=== PATIENT | male | born 1960 | race Caucasian/White ===

== ENCOUNTER 2021-10-03 13:11 | Emergency (ER) | payer OTHER, SELFPAY ==
[2021-10-03 13:13] VITALS: BP 93/79; PULSE 86; RESP 16; TEMP 36.7; O2SAT 98; BMI 25.0
--- NOTE | 2021-10-03 13:31 | EKG12_ITS ---
Test Reason : CHEST PRESSURE Blood Pressure : / mmHG Vent. Rate : 073 BPM Atrial Rate : 073 BPM P-R Int : 150 ms QRS Dur : 082 ms QT Int : 354 ms P-R-T Axes : 045 050 073 degrees QTc Int : 389 ms Normal sinus rhythm Normal ECG Confirmed by UMER STARKEY MD ([id number]), script editor TIMMY SCHULTZ ([id number]) on 10/06/2021 12:58:29 PM Referred By: LOIDA Confirmed By:UMER STARKEY MD
--- NOTE | 2021-10-03 13:32 | EX.ED.UPPERE ---
HPI History of Present Illness HPI Narrative: Left shoulder and chest pain Chief Complaint: Upper Extremity Injury Informant: patient Occured/Mechanism Mechanism/Context: No injury Onset/Context/Timing Onset: Days Context: Gradual Onset Timing: Intermittent Quality of Pain: Dull and Aching Current Severity: Mild Maximum Severity: Mild Associated Symptoms Associated Symptoms: Negative for Parasthesia, Weakness or Loss of Funtion Narrative Narrative: 61-year-old male recently been tired. He has been having left shoulder pain. He is right-hand dominant. He said it is really worse yesterday. He has had body aches. He denies any nausea or vomiting. He denies any diarrhea or fever. He has had some mild shortness of breath. He said his left arm hurts more with movement. He denies any prior surgery or any recent injury. Patient is treated for blood pressure on both metoprolol and lisinopril as needed. Prior similar symptoms: Yes Recent Illness/Hospitalization: No PFSH PFSH Medical History HTN (hypertension) Home Medications lisinopril 20 mg tablet 20 mg PO DAILY 10/03/21 [History Last Taken Unknown] metoprolol tartrate 50 mg tablet 50 mg PO DAILY 10/03/21 [History Last Taken Unknown] prednisone 20 mg tablet 40 mg PO DAILY 7 days #14 tabs 10/03/21 [Rx Last Taken Unknown] Allergy/AdvReac Type Severity Reaction Status Date / Time No Known Allergies Allergy Verified 10/03/21 14:29 Surgical History H/O spinal fusion Hx of cholecystectomy Social History Smoking Status: Never smoker ROS ROS ED ROS Narrative Tired. Left shoulder and epigastric pain. Review of Systems ROS Unobtainable: Denies due to encephalopathy Constitutional Constitutional ED: Denies chills or fever(s) Eyes Eyes: Denies blurry vision ENT ENT ED: Denies ear pain Cardiovascular Cardiovascular: Reports chest pain Respiratory/Chest Respiratory/Chest: Denies cough or dyspnea Gastrointestinal Gastrointestinal: Reports abdominal pain; Denies constipation or diarrhea Genitourinary Genitourinary ED: Denies dysuria or hematuria Musculoskeletal Musculoskeletal: Denies back pain Integumentary Denies abscess Neurologic Neurologic: Denies headache(s) Psychiatric Psychiatric: Denies anxiety Endocrine Endocrinology: Denies cold intolerance Hematologic/Lymphatic Hematologic/Lymphatic: Denies easy bleeding Allergic/Immunologic Allergic/Immunologic ED: Denies mouth swelling EXAM Physical Exam Narrative Exam Narrative: 61-year-old male no acute distress vital signs stable afebrile. Initial pressure was 93/79 the nurses retook it is 151/89 they think the cuff malfunction initially. H EENT exam unremarkable. Neck nontender. Lungs are clear. Heart regular rhythm no murmur. Abdomen soft nontender. Moving all 4 extremities. Calves are nontender without edema. Neurologically is awake and alert with no focal motor deficits. His left arm he does have discomfort with range of motion. Is not red or swollen. There is no bony deformity. No warmth. No signs of septic joint. He has normal radial pulses and normal fumigator and sterilizer strength. Const Vital Signs: 10/03/21 13:13 10/03/21 13:25 Temperature 98.0 F Temperature Source Temporal Pulse Rate 86 Respiratory Rate 16 Respiratory Effort Short of Breath Blood Pressure 93/79 Blood Pressure Mean 83 Pulse Ox 98 Oxygen Delivery Method Room Air Positive well nourished and well developed; Negative for obese, cachectic, contractures or unkempt General Appearance ED: well developed; Negative for unkempt, cachectic or contractures Nutritional Appearance: Negative for cachectic or obese HEENT Reports moist mucous membranes normocephalic and atraumatic; Negative for trauma or tenderness Eyes PERRL and EOMs intact bilaterally General Eye ED: Negative for other Neck full ROM and supple General: Negative for tenderness Lymph Lymphatic: Negative for other Chest Wall inspection of chest normal and palpation of chest normal Chest: Negative for other Resp normal respiratory effort and clear to auscultation bilaterally Effort and Inspection: Negative for pain with movement Auscultation: Negative for rales, rhonchi or wheezes Cardio regular rate, regular rhythm, S1 normal heart sound, S2 normal heart sound and no murmurs Rate: Negative for bradycardia Rhythm: Negative for abnormal rhythm GI non-tender, non-distended and no masses Inspection: Negative for abdominal distention Auscultation: normoactive bowel sounds Palpation: soft; Negative for tender or guarding Bladder / Kidney Exam: No other Back/Spine no CVA tenderness General Back: Negative for CVA tenderness Cervical Spine: Negative for cervical spine tenderness Thoracic Spine / Upper Back: Negative for thoracic spinal tenderness Lumbar Spine / Lower Back: Negative for lumbar spinal tenderness Extremity Negative for normal to inspection or full ROM Extremity Narrative: Left shoulder mild tenderness. No deformity. Range of motion is full but it takes him time to do range of motion due to discomfort. He can do internal or external rotation. He can do AB and adduction. General Extremety ED: Negative for edema General Extremity: Negative for edema Neuro oriented x3, CN's II-XII intact bilaterally, moves all extremities, no focal motor deficits and no sensory deficits noted Sensorium / Orientation: alert, oriented to person, oriented to place and oriented to time; Negative for orientation impaired, lethargic, stuporous or other Sensory Exam: No sensory level loss detected Psych mental status grossly normal Appearance: Negative for unkempt Attitude: No agitated Mood & Affect: Negative for depressed or anxious Skin General Skin Exam: Negative for petechiae Lesions: no lesions Rashes: no rashes MDM MDM MDM Narrative Medical decision making narrative: 61-year-old male complaint left shoulder pain and atypical chest and epigastric pain. Undergo cardiac work-up. There may be also component of left shoulder arthritis. Repeat exam patient is doing well. He and I discussed different treatment options. He and his are concerned that he has inflammation in his shoulder and other joints. We discussed joint injection versus placing him on prednisone. He preferred the prednisone. He will be given a prescription of 40 mg a day for the next 7 days. Follow-up with orthopedics. He has seen him before in the past for his shoulder and was told at one time he might eventually need a shoulder replacement. His cardiac work-up was completely negative. Lab Data Attestation: I reviewed the patient's lab results. Lab results narrative: CBC unremarkable. Chemistries unremarkable an elevated creatinine of 1.68. Troponin less than 3 normal. Lipase normal. Radiography Diagnostic Testing: Chest x-ray, portable, single view interpreted myself shows no acute abnormality. Normal cardiac silhouette mediastinum. No acute abnormality. Discharge Plan Triage Chief Complaint: Upper Extremity Injury Other Complaint: Chest Pain ED Provider: Yaya Acosta Dx/Rx/DC Orders Clinical Impression: Acute pain of left shoulder, Arthritis, Atypical chest pain Instructions: Osteoarthritis Prescriptions: New prednisone 20 mg tablet 40 mg PO DAILY 7 Days Qty: 14 0RF No Action lisinopril 20 mg Tablet 20 mg PO DAILY metoprolol tartrate 50 mg Tablet 50 mg PO DAILY Primary Care Provider: Vicente Venegas Referrals: Vicente Venegas DO [Primary Care Provider] - 1 Week if not improving Activity Restrictions/Additional Instructions: Ice to your left shoulder. Prednisone 40 mg a day for the next week to decrease inflammation. Follow-up with your doctor if not improving. Also to have your kidney function rechecked in the next month or so. Your creatinine today was 1.68. Disposition Disposition: Home, Self Care
[2021-10-03 13:34] VITALS: BP 151/89; PULSE 80; RESP 18; O2SAT 98
--- NOTE | 2021-10-03 13:55 | RAD_ITS ---
STUDY: X-RAY CHEST REASON FOR EXAM: Male, 61 years old. chest pain TECHNIQUE: AP COMPARISON: None. FINDINGS: The lungs are clear and expanded. There is no demonstrated pleural abnormality. Normal size heart. Normal mediastinum and chrissy. Normal visualized pulmonary arteries. There is atherosclerotic calcification of the aortic arch with tortuosity. Normal visualized thoracic spine. Fusion hardware in the lower cervical spine. EKG leads project over the chest. There is no demonstrated abnormality of the visualized soft tissue structures of the upper abdomen. RAD/Chest 1 View (Portable) IMPRESSION: Nonacute portable x-ray examination of the chest. Electronically Signed: Parmjit Mcfarland MD ([place]) at 14:19 EDT ,
[2021-10-03 13:59] LABS: Absolute Neutrophil Count 7.9 X10^3/uL (2.0-7.7); Basophil# 0.03 X10^3/uL; Basophil% 0.3 % (0-1); Eosinophil# 0.04 X10^3/uL; Eosinophils% 0.4 % (0-5); Hematocrit 40.8 % (40-54); Hemoglobin 13.7 g/dL (13.0-16.5); Lymphocyte % 15.2 % (19-41); Mean Corp Hgb Conc 33.6 g/dL (32-36); Mean Corpuscular Hgb 30.1 pg (27.0-32.0); Mean Corpuscular Volume 89.7 fL (80-94); Mean Platelet Vol. 9.7 fl (6.2-12.0); Monocyte# 0.95 X10^3/uL; NRBC Flagged by Analyzer 0 % (0-5); Neutrophil # 7.86 X10^3/uL (2.7-7.7); Neutrophil % 74.8 % (47-70); Platelet Count 257 K/mm3 (150-450); RBC Distribution Width CV 13.2 % (11.6-14.6); RBC Distribution Width SD 43.5 fl (35.1-43.9); Red Blood Count 4.55 M/mm3 (4.6-6.2); White Blood Count 10.5 K/mm3 (4.4-11.0)
[2021-10-03 14:07] LABS: Anion Gap 5 (5-15); BUN 24 mg/dL (7-18); BUN/Creat Ratio 14.3 RATIO (10-20); Calcium,Total 9.6 mg/dL (8.5-10.1); Chloride 105 mmol/L (98-107); Creatinine, Serum 1.68 mg/dL (0.70-1.30); EST Glomerular Filtration Rate 44 mL/min (>60); Est Glom Filt Rate - Afr Amer 54 mL/min (>60); Estimated Creatinine Clearance 43.17 ml/min; Glucose 103 mg/dL (74-106); Lipase 149 U/L (73-393); Potassium 4.2 mmol/L (3.5-5.1); Sodium Level 139 mmol/L (136-145); Troponin-I HS (w/2H Reflex) < 3 pg/mL (3.0-78.0)
--- NOTE | 2021-10-03 14:23 | NURSING ---
NO OLD EKGS
[2021-10-03 14:28] VITALS: BP 147/89; PULSE 73; RESP 17; O2SAT 97
[2021-10-03] MEDS: HYDROcodone Bitartrate/Apap 5/325 Tablet PO (14:34)
[2021-10-03 15:11] VITALS: BP 148/83; PULSE 72; RESP 13; O2SAT 96
[2021-10-03 15:46] LABS: Reflex Troponin-HS? (from REC) Y
[2021-10-03 16:23] VITALS: BP 145/85; PULSE 72; RESP 18; O2SAT 97
== END 2021-10-03 16:24 | disposition home or self-care (01) ==
PROVIDERS: Emergency Provider Emergency Medicine; PCP Family Medicine; Visit Provider Emergency Medicine
DX: M25.512 Pain in left shoulder (principal); M19.90 Unspecified osteoarthritis, unspecified site; R07.89 Other chest pain; I10 Essential (primary) hypertension; Z79.899 Other long term (current) drug therapy
CPT/HCPCS: 71045; 80048; 83690; 84484; 85025; 93005; 99285; A4216

== ENCOUNTER → 2022-01-21 | Outpatient (CLI) | payer OTHER, SELFPAY ==
[2022-01-21 13:12] LABS: Protein, Urine (Random) 27.4 mg/dL (<11.9); Protein:Creat Ratio 1473 mg/g CRE (0-200)
== END | disposition home or self-care (01) ==
LOC: LABSPEC 11:15
PROVIDERS: PCP Family Medicine; Visit Provider Internal Medicine Nephrology
DX: N18.32 Chronic kidney disease, stage 3b (principal)
CPT/HCPCS: 82570; 84156

== ENCOUNTER → 2022-02-02 | Outpatient (CLI) | payer SELFPAY, OTHER ==
--- NOTE | 2022-02-02 12:20 | US_ITS ---
STUDY: RENAL ULTRASOUND - COMPLETE REASON FOR EXAM: Male, 61 years old. CKD TECHNIQUE: Ultrasound evaluation of the kidneys was performed with real-time and static buchanan-scale imaging. COMPARISON: None. FINDINGS: RIGHT KIDNEY: Normal location of the right kidney, which is normal in size. The right kidney measures 9.1 cm x 4.1 cm x 5.4 cm. There is a normal cortex of the right kidney. The renal cortex measures 1.7 cm. There is no right renal mass or cyst. There are no right renal calculi. There is no right hydronephrosis. DISTAL RIGHT URETER: There is non-visualization of the distal right ureter. There is no demonstrated right ureterovesical junction calculus. There is no demonstrated right ureteral jet. LEFT KIDNEY: Normal location of the left kidney, which is normal in size. The left kidney measures 9 cm x 4.1 cm x 5.3 cm. There is a normal cortex of the left kidney. The renal cortex measures 1.7 cm. There is no left renal mass or cyst. There are no left renal calculi. There is no left hydronephrosis. DISTAL LEFT URETER: There is non-visualization of the distal left ureter. There is no demonstrated left ureterovesical junction calculus. There is no demonstrated left ureteral jet. BLADDER: The distended urinary bladder has a volume of 430 ml. There is a normal wall thickness of the distended urinary bladder. There is no demonstrated mass within the urinary bladder. There are no demonstrated bladder calculi. US/Kidney and Bladder IMPRESSION: Normal ultrasound of the kidneys and urinary bladder. Electronically Signed: Lexa Martinez MD at 15:43 EST ,
== END | disposition home or self-care (01) ==
PROVIDERS: PCP Family Medicine; Visit Provider Internal Medicine Nephrology
DX: N18.32 Chronic kidney disease, stage 3b (principal)
CPT/HCPCS: 76770

== ENCOUNTER → 2022-02-02 | Outpatient (CLI) | payer OTHER, SELFPAY ==
[2022-02-02 15:57] LABS: Anion Gap 8 (5-15); BUN 20 mg/dL (7-18); Calcium,Total 9.2 mg/dL (8.5-10.1); Chloride 102 mmol/L (98-107); Creatinine, Serum 1.54 mg/dL (0.70-1.30); EST Glomerular Filtration Rate 49 mL/min (>60); Est Glom Filt Rate - Afr Amer 59 mL/min (>60); Glucose 92 mg/dL (74-106); Potassium 4.1 mmol/L (3.5-5.1); Sodium Level 137 mmol/L (136-145)
== END | disposition home or self-care (01) ==
PROVIDERS: PCP Family Medicine; Referring Provider Internal Medicine Nephrology; Visit Provider Internal Medicine Nephrology
DX: R80.9 Proteinuria, unspecified (principal)
CPT/HCPCS: 36415; 80048

== ENCOUNTER → 2022-03-18 | Outpatient (CLI) | payer OTHER, SELFPAY ==
[2022-03-18 13:12] LABS: Protein, Urine (Random) 67.1 mg/dL (<11.9); Protein:Creat Ratio 497 mg/g CRE (0-200)
[2022-03-18 13:45] LABS: Albumin, Serum 3.5 g/dL (3.2-5.0); BUN 37 mg/dL (7-18); BUN/Creat Ratio 20.9 RATIO (10-20); Chloride 110 mmol/L (98-107); Creatinine, Serum 1.77 mg/dL (0.70-1.30); EST Glomerular Filtration Rate 42 mL/min (>60); Est Glom Filt Rate - Afr Amer 51 mL/min (>60); Glucose 99 mg/dL (74-106); Phosphorus 3.7 mg/dL (2.5-4.9); Potassium 4.2 mmol/L (3.5-5.1); Sodium Level 140 mmol/L (136-145); Uric Acid 7.9 mg/dL (3.5-7.2)
== END | disposition home or self-care (01) ==
LOC: LAB 12:45
PROVIDERS: PCP Family Medicine; Referring Provider Internal Medicine Nephrology; Visit Provider Internal Medicine Nephrology
DX: N18.32 Chronic kidney disease, stage 3b (principal); R80.9 Proteinuria, unspecified; M10.9 Gout, unspecified
CPT/HCPCS: 36415; 80069; 82570; 84156; 84550

== ENCOUNTER → 2022-06-14 | Outpatient (CLI) | payer OTHER, SELFPAY ==
[2022-06-14 09:42] LABS: Protein, Urine (Random) 27.3 mg/dL (<11.9); Protein:Creat Ratio 756 mg/g CRE (0-200)
== END | disposition home or self-care (01) ==
LOC: LAB 09:02
PROVIDERS: PCP Family Medicine; Referring Provider Internal Medicine Nephrology; Visit Provider Internal Medicine Nephrology
DX: R80.9 Proteinuria, unspecified (principal)
CPT/HCPCS: 82570; 84156

== ENCOUNTER → 2022-09-14 | Outpatient (CLI) | payer OTHER, SELFPAY ==
[2022-09-14 13:47] LABS: Protein:Creat Ratio 527 mg/g CRE (0-200)
[2022-09-14 13:50] LABS: Albumin, Serum 3.5 g/dL (3.2-5.0); BUN 31 mg/dL (7-18); BUN/Creat Ratio 16.5 RATIO (10-20); Calcium,Total 9.3 mg/dL (8.5-10.1); Chloride 108 mmol/L (98-107); Creatinine, Serum 1.88 mg/dL (0.70-1.30); EST Glomerular Filtration Rate 39 mL/min (>60); Est Glom Filt Rate - Afr Amer 47 mL/min (>60); Glucose 129 mg/dL (74-106); Phosphorus 3.5 mg/dL (2.5-4.9); Potassium 4.1 mmol/L (3.5-5.1); Sodium Level 139 mmol/L (136-145)
== END | disposition home or self-care (01) ==
PROVIDERS: PCP Family Medicine; Referring Provider Internal Medicine Nephrology; Visit Provider Internal Medicine Nephrology
DX: E79.0 Hyperuricemia without signs of inflammatory arthritis and tophaceous disease (principal); N18.32 Chronic kidney disease, stage 3b; R80.9 Proteinuria, unspecified
CPT/HCPCS: 36415; 80069; 82570; 84156; 84550

== ENCOUNTER → 2022-12-21 | Outpatient (CLI) | payer OTHER, SELFPAY ==
[2022-12-21 11:42] LABS: Albumin, Serum 3.5 g/dL (3.2-5.0); BUN 28 mg/dL (7-18); BUN/Creat Ratio 14.8 RATIO (10-20); Calcium,Total 9.4 mg/dL (8.5-10.1); Chloride 106 mmol/L (98-107); Creatinine, Serum 1.89 mg/dL (0.70-1.30); EST Glomerular Filtration Rate 39 mL/min (>60); Est Glom Filt Rate - Afr Amer 47 mL/min (>60); Glucose 78 mg/dL (74-106); Phosphorus 3.1 mg/dL (2.5-4.9); Potassium 4.5 mmol/L (3.5-5.1); Sodium Level 138 mmol/L (136-145)
== END | disposition home or self-care (01) ==
LOC: LAB 09:32
PROVIDERS: Referring Provider Internal Medicine Nephrology; Visit Provider Internal Medicine Nephrology
DX: N18.32 Chronic kidney disease, stage 3b (principal); R80.9 Proteinuria, unspecified
CPT/HCPCS: 36415; 80069

== ENCOUNTER → 2023-02-15 | Outpatient (CLI) | payer OTHER, SELFPAY ==
[2023-02-15 15:16] LABS: Albumin, Serum 3.5 g/dL (3.2-5.0); BUN 23 mg/dL (7-18); BUN/Creat Ratio 12.8 RATIO (10-20); Calcium,Total 8.8 mg/dL (8.5-10.1); Chloride 107 mmol/L (98-107); EST Glomerular Filtration Rate 41 mL/min (>60); Est Glom Filt Rate - Afr Amer 49 mL/min (>60); Glucose 111 mg/dL (74-106); Phosphorus 3.5 mg/dL (2.5-4.9); Potassium 4.3 mmol/L (3.5-5.1); Sodium Level 140 mmol/L (136-145)
[2023-02-15 15:27] LABS: Protein, Urine (Random) 32.6 mg/dL (<11.9); Protein:Creat Ratio 845 mg/g CRE (0-200)
== END | disposition home or self-care (01) ==
LOC: LAB 13:56
PROVIDERS: PCP Family Medicine; Referring Provider Internal Medicine Nephrology; Visit Provider Internal Medicine Nephrology
DX: N18.32 Chronic kidney disease, stage 3b (principal); R80.9 Proteinuria, unspecified
CPT/HCPCS: 36415; 80069; 82570; 84156

== ENCOUNTER → 2023-04-15 | Outpatient (CLI) | payer OTHER, SELFPAY ==
--- OUTSIDE RECORDS SUMMARY | 2023-04-15 11:35 | XMS RPT_ITS | CCD ---
Author Name Unknown Address [address] [place] [address] Organization [facility] Care Team Providers [employer] Name Role Phone YIN MAYA Admitting Unavailable YIN MAYA Attending Unavailable YIN MAYA Primary Care Unavailable Problems Problem Classification Problem Date Documented Da te Episodic/Chronic Residual codes; unclassified (2 sources) Chills (without fever); Translations: [Chills (without fever)] Onset: 08-01-2019 Episodic Unclassified (1 source) Invalid ICD10 Description; Translations: [Invalid ICD10 Description] Onset: 08-01-2019 Results Test Name Value Interpretation Reference Range Facil ity Encounters Encounter Date Encounter Type Care Provider Facility Start: 08-01-2019 End: 08-01-2019 Patient encounter procedure YIN MAYA [facility] Payers Date Payer Category Payer Unknown [id number] Unknown [id number] Summary Purpose Family History No Family History Records FoundNo Family History Records Found Advance Directives No Advanced Directives Records FoundNo Advanced Directives Records Found Additional Source Comments (unrecognized sect ion and content) No Status Records FoundNo Status Records Found INFORMATION SOURCE (unrecogn ized section and content) DATE CREATED AUTHOR AUTHOR'S ORGANIZ ATION 08/13/2019 [facility] FOR RECORDS PERTAINING TO PATIENTS WHO ARE OR HAVE BEEN ENROLLED IN A CHEMICAL DEPENDENCY/SUBSTANCEABUSE PROGRAM, SOME INFORMATION MAY BE OMITTED. This clinical summary was aggregated from multiple sources. Caution should be exercised in using it in the provision of clinical care. This summary normalizes information from multiple sources, and as a consequence, information in this document may materially change the coding, format and clinical context of patient data. In addition, data may be omitted in some cases. CLINICAL DECISIONS SHOULD BE BASED ON THE PRIMARY CLINICAL RECORDS. [employer] [facility]. provides no warranty or guarantee of the accuracy or completeness of information in this document.
[2023-04-15 13:11] LABS: Albumin, Serum 3.4 g/dL (3.2-5.0); BUN 24 mg/dL (7-18); BUN/Creat Ratio 15.7 RATIO (10-20); Calcium,Total 9.4 mg/dL (8.5-10.1); Chloride 105 mmol/L (98-107); Creatinine, Serum 1.53 mg/dL (0.70-1.30); EST Glomerular Filtration Rate 49 mL/min (>60); Est Glom Filt Rate - Afr Amer 60 mL/min (>60); Glucose 96 mg/dL (74-106); Phosphorus 3.6 mg/dL (2.5-4.9); Potassium 4.2 mmol/L (3.5-5.1); Sodium Level 139 mmol/L (136-145)
[2023-04-15 13:20] LABS: Protein, Urine (Random) 12.7 mg/dL (<11.9); Protein:Creat Ratio 588 mg/g CRE (0-200)
[2023-04-18 11:08] LABS: ANTINUCLEAR ANTIBODIES DIRECT Negative (Negative)
[2023-04-18 14:08] LABS: PROEL- A/G Ratio 1.6 (0.7-1.7); PROEL- Albumin 3.9 g/dL (2.9-4.4); PROEL- Alpha-1 Globulin 0.1 g/dL (0.0-0.4); PROEL- Alpha-2 Globulin 0.5 g/dL (0.4-1.0); PROEL- Beta Globulin 1.3 g/dL (0.7-1.3); PROEL- Gamma Globulin 0.6 g/dL (0.4-1.8); PROEL- Globulin, Total 2.5 g/dL (2.2-3.9); PROEL- TOTAL PROTEIN 6.4 g/dL (6.0-8.5); PROEL-M-Spike Comment: g/dL (Not Observed)
== END | disposition home or self-care (01) ==
LOC: LAB 11:15
PROVIDERS: PCP Family Medicine; Referring Provider Internal Medicine Nephrology; Visit Provider Internal Medicine Nephrology
DX: N18.32 Chronic kidney disease, stage 3b (principal)
CPT/HCPCS: 36415; 80069; 82570; 84156; 84165; 84166; 86038

== ENCOUNTER → 2023-05-30 | Outpatient (CLI) | payer OTHER, SELFPAY ==
--- NOTE | 2023-05-30 08:45 | RAD_ITS ---
STUDY: X-RAY BONE SURVEY COMPLETE REASON FOR EXAM: Male, 62 years old. ABNORMAL SERUM PROTEIN ELECTROPHORESIS TECHNIQUE: One view of the pelvis was obtained. 2 views of the cervical spine were obtained. 2 views of the thoracic spine were obtained. 2 views of the lumbar spine were obtained. 2 views of the femur. 2 views of the humerus. : 2 views of the skull were obtained. COMPARISON: None. FINDINGS: CHEST: The lungs are clear and expanded. There is no demonstrated pleural abnormality. Normal size heart. Normal mediastinum and chrissy. Normal visualized pulmonary arteries. Normal visualized aortic arch and descending thoracic aorta. Normal visualized thoracic spine. Normal visualized ribs, clavicles, and shoulders. There is no demonstrated abnormality of the visualized soft tissue structures of the upper abdomen. PELVIS: There is a non-specific bowel gas pattern. There are multiple calcified phleboliths. Normal bilateral iliac wings, sacroiliac joints and visualized sacrum. Normal visualized bilateral superior and inferior pubic rami. Normal pubic symphysis. Normal ischial tuberosities. Normal visualized right femoral head. Normal right acetabulum. Normal right hip joint. Normal visualized left femoral head. Normal left acetabulum. Normal left hip joint. CERVICAL SPINE: Normal anterior atlantoaxial articulation. Normal odontoid process. Normal cervical lordosis. Normal vertebral bodies and endplates. The patient is status post anterior fusion with screw and plate fixation device and prosthetic disc at the C6-C7 level. Disc space narrowing and spondylosis at the C5-C6 level. Normal visualized intervertebral neuroforamina. The soft tissue structures are unremarkable. THORACIC SPINE: Normal kyphosis of the thoracic spine. There is no substantial scoliosis. There is multilevel endplate spondylosis of the thoracic vertebrae. There is multilevel disc space narrowing of the thoracic spine. The soft tissue structures are unremarkable. LUMBAR SPINE: Normal lumbar lordosis. There is no substantial scoliosis. There is a normal alignment of the vertebrae. There is multilevel endplate spondylosis of the lumbar vertebrae. There is multi-level degenerative disc disease with multi-level disc space narrowing. The soft tissue structures are unremarkable. RIGHT FEMUR: Normal visualized femur. Calcific bursitis overlying the greater trochanter. LEFT FEMUR: Normal visualized femur. Normal visualized soft tissue structure. RIGHT HUMERUS :Normal visualized humerus. There is no demonstrated fracture or osseous destructive process. There is no demonstrated soft tissue abnormality. LEFT HUMERUS:Normal visualized humerus. There is no demonstrated fracture or osseous destructive process. There is no demonstrated soft tissue abnormality. SKULL: There is no demonstrated soft tissue swelling. Normal osseous calvarium. Normal visualized facial bones. Normal visualized paranasal sinuses. RAD/Bone Survey Comp(Axial&Append) IMPRESSION: Degenerative changes of the cervical, thoracic and lumbar spines. No bony destruction is seen. Electronically Signed: Lexa Martinez MD at 13:09 EDT ,
== END | disposition home or self-care (01) ==
LOC: RAD 08:41
PROVIDERS: PCP Family Medicine; Referring Provider Internal Medicine Medical Oncology; Visit Provider Internal Medicine Medical Oncology
DX: R77.8 Other specified abnormalities of plasma proteins (principal)
CPT/HCPCS: 77075

== ENCOUNTER → 2023-10-11 | Outpatient (CLI) | payer SELFPAY ==
[2023-10-11 14:50] LABS: Albumin, Serum 3.3 g/dL (3.2-5.0); BUN 25 mg/dL (7-18); BUN/Creat Ratio 14.5 RATIO (10-20); Chloride 109 mmol/L (98-107); Creatinine, Serum 1.72 mg/dL (0.70-1.30); EST Glomerular Filtration Rate 43 mL/min (>60); Est Glom Filt Rate - Afr Amer 52 mL/min (>60); Glucose 149 mg/dL (74-106); Phosphorus 2.2 mg/dL (2.5-4.9); Potassium 3.8 mmol/L (3.5-5.1); Sodium Level 140 mmol/L (136-145)
[2023-10-11 14:53] LABS: Protein, Urine (Random) 10.9 mg/dL (<11.9); Protein:Creat Ratio 332 mg/g CRE (0-200)
[2023-10-18 11:59] LABS: Free Kappa Light Chains 22.4 mg/L (3.3-19.4); Free Lambda Light Chains 91.5 mg/L (5.7-26.3); PROELU- Albumin, Urine 83.3 % (.); PROELU- Alpha-1-Globulin,Ur 0.6 % (.); PROELU- Alpha-2-Globulin,Ur 2.5 % (.); PROELU- Beta Globulin, Ur 6.6 % (.)
== END | disposition home or self-care (01) ==
LOC: LAB 13:44
PROVIDERS: PCP Family Medicine; Referring Provider Internal Medicine Nephrology; Visit Provider Internal Medicine Nephrology
DX: N18.32 Chronic kidney disease, stage 3b (principal); R80.9 Proteinuria, unspecified; D47.2 Monoclonal gammopathy
CPT/HCPCS: 36415; 80069; 82570; 83883; 84156; 84166

== ENCOUNTER → 2024-04-23 | Outpatient (CLI) | payer SELFPAY ==
[2024-04-23 12:01] LABS: Protein, Urine (Random) 15.9 mg/dL (<11.9); Protein:Creat Ratio 546 mg/g CRE (0-200)
[2024-04-23 12:30] LABS: Albumin, Serum 3.5 g/dL (3.2-5.0); BUN 25 mg/dL (7-18); BUN/Creat Ratio 15.3 RATIO (10-20); Calcium,Total 9.4 mg/dL (8.5-10.1); Chloride 104 mmol/L (98-107); Creatinine, Serum 1.63 mg/dL (0.70-1.30); EST Glomerular Filtration Rate 46 mL/min (>60); Est Glom Filt Rate - Afr Amer 55 mL/min (>60); Glucose 86 mg/dL (74-106); Phosphorus 3.3 mg/dL (2.5-4.9); Potassium 4.5 mmol/L (3.5-5.1); Sodium Level 136 mmol/L (136-145)
== END | disposition home or self-care (01) ==
LOC: LAB 11:09
PROVIDERS: PCP Family Medicine; Referring Provider Internal Medicine Nephrology; Visit Provider Internal Medicine Nephrology
DX: N18.32 Chronic kidney disease, stage 3b (principal); R80.9 Proteinuria, unspecified
CPT/HCPCS: 36415; 80069; 82570; 84156